=== PATIENT | female | born 1955 | race Caucasian/White ===

== ENCOUNTER 2019-06-24 19:31 | Emergency (ER) | payer BC, OTHER ==
[~2019-06-24] VITALS: Ht 154.9 cm; Wt 54.0 kg
[~2019-06-24 19:31] MED LIST: ATOR40TA52; IBUP800T24 PO; OMEPRAZOLE DR 20 MG CAPSULE; TRAM50TA2 PO
[2019-06-25 00:30] VITALS: BP 142/72
== END 2019-06-25 00:54 | disposition home or self-care (01) ==
LOC: ER 19:34
DX: S00.93XA Contusion of unspecified part of head, initial encounter (principal); M79.89 Other specified soft tissue disorders; E78.5 Hyperlipidemia, unspecified; K21.9 Gastro-esophageal reflux disease without esophagitis; Z88.0 Allergy status to penicillin; Z88.2 Allergy status to sulfonamides; Z90.710 Acquired absence of both cervix and uterus; W22.8XXA Striking against or struck by other objects, initial encounter; Y93.89 Activity, other specified; Y99.8 Other external cause status; Y92.89 Other specified places as the place of occurrence of the external cause
CPT/HCPCS: 70450